=== PATIENT | female | born 1970 | race Caucasian/White ===

== ENCOUNTER 2022-07-03 08:53 | Day surgery (SDC) | payer BC ==
[~2022-07-03] VITALS: Ht 157.5 cm; Wt 98.0 kg
[~2022-07-03 08:53] MED LIST: LEVOTHYROXIN50 MCG PO; MONTELUKAST SOD10 MG PO; MOUNJARO2.5 MG IJ; WELLBUTRIN150 M1 PO
[2022-07-03 10:35] VITALS: BP 136/76
== END 2022-07-03 10:50 | disposition home or self-care (01) | DRG 951 ==
LOC: ENDO 08:53
PROVIDERS: ATTEND Internal Medicine Gastroenterology
PROC: 0DJD8ZZ Inspection of Lower Intestinal Tract, Via Natural or Artificial Opening Endoscopic (ICD-10-PCS; principal; 2022-07-03)
DX: Z12.11 Encounter for screening for malignant neoplasm of colon (principal); K64.8 Other hemorrhoids; Z80.0 Family history of malignant neoplasm of digestive organs